=== PATIENT | male | born 1965 | race Caucasian/White ===

== ENCOUNTER → 2016-12-19 | Outpatient (CLI) | payer OTHER ==
[~2016-12-19] MED LIST: AMOX500T PO; ASPI325T45 PO; LEVO-366 PO; SULF800T23 PO; antibiotic PO
[2016-12-19 17:31] LABS: HEMATOCRIT 41.8 % (42-52); MEAN CELL VOLUME 88.6 fL (80-100); MEAN CORPUSCULAR HEMOGLOBIN 29.7 pg (25-34); MEAN CORPUSCULAR HGB CONC 33.5 g/dl (32-36); MEAN PLATELET VOLUME 9.8 fL (7.4-10.4); PLATELET COUNT 365 K/uL (130-400); RED BLOOD COUNT 4.72 M/uL (4.7-6.1); WHITE BLOOD COUNT 15.66 K/uL (4.8-10.8)
[2016-12-19 18:04] LABS: BLOOD UREA NITROGEN 14 mg/dl (7-18); BUN/CREATININE RATIO 10.8 (10-20); CALCIUM 8.4 mg/dl (8.5-10.1); CARBON DIOXIDE 26 mmol/L (21-32); CHLORIDE 110 mmol/L (98-107); GLUCOSE 131 mg/dl (70-99); POTASSIUM 4.3 mmol/L (3.5-5.1); SODIUM 142 mmol/L (136-145)
== END | disposition home or self-care (01) ==
LOC: C.LABPVFM 15:31
PROVIDERS: ATTEND Internal Medicine Interventional Cardiology
DX: Z01.818 Encounter for other preprocedural examination (principal)

== ENCOUNTER 2016-12-21 07:30 | Day surgery (SDC) | payer OTHER ==
[2016-12-20 17:55] LABS: INR 0.9 (0.9-1.1); PARTIAL THROMBOPLASTIN RATIO 1.1; PROTHROMBIN TIME (PATIENT) 9.6 SECONDS (9.0-12.0)
[~2016-12-21] VITALS: Ht 180.3 cm; Wt 136.3 kg
[~2016-12-21 07:30] MED LIST changes: -LEVO-366 PO; +SODIUM CHLORIDE 0.9% 1000ML 1,000 ML IV SCH; -SULF800T23 PO; -antibiotic PO
[2016-12-21 08:25] VITALS: BP 174/98; PULSE 76; TEMP 36.7; O2SAT 97; Ht 180.3 cm; Wt 136.3 kg
[2016-12-21] MEDS ORDERED: antibiotic PO (08:39)
[2016-12-21] MEDS ORDERED: SODIUM BICARB 8.4% INJ 50 MEQ/50 ML SYR IV ONE (09:21)
[2016-12-21] MEDS ORDERED: LIDOCAINE HCL 1% 20 ML VIAL ONE (09:21)
[2016-12-21] MEDS ORDERED: LIDOCAINE/EPINEPHRINE 1% INJ 50 ML VIAL ONE (09:21)
[2016-12-21] MEDS ORDERED: FENTANYL CITRATE INJ 50 MCG/1 ML 2 ML VIAL ONE (09:21)
--- NOTE | 2016-12-21 09:21 | Procedure Note ---
Pre-Mod Sedation Assessment General Date of Moderate Sedation: Dec 21, 2016. Vital Signs: Vital Signs Past 12 Hours Date Time Temp Pulse Resp B/P (MAP) Pulse Ox O2 Delivery O2 Flow Rate FiO2 12/21/16 08:25 36.7 76 18 174/98 (123) 97 Room Air Review Cardiovascular: regular rate, rhythm, no edema Abdomen: normal bowel sounds, soft Lungs: lungs clear, normal breath sounds Airway Class: III Pre-Sedation Airway Assessment Oral Cavity: Chipped Teeth, Dentures Able to Visualize Vocal Cords: No Short Thick Neck: Yes Hx of Sleep Apnea: Yes Smoking Status: Current Every Day Smoker Mallampati Classification: Class III ASA Classification: Class II Procedure Planning Contraindications-for Mod Sed: None Yes Notes The planned sedation has been discussed with the patient and consent obtained. I have identified the patient, determined the appropriateness of sedation and have assessed the patient immediately prior to the procedure. All medicine(s) and interventions are by my order.
--- NOTE | 2016-12-21 09:21 | History & Physical Bridge Note ---
H&P Re-Evaluation Bridge Note: I have examined the patient, reviewed the History & Physical and in the interval since the performance of the History & Physical I have noted the following changes of clinical significance: No changes noted
[2016-12-21] MEDS ORDERED: MIDAZOLAM HCL 1 MG/ML 2ML VIAL ONE (09:22)
[2016-12-21 09:34] VITALS: BP 174/98; PULSE 76; TEMP 36.7; O2SAT 97
[2016-12-21] MEDS ORDERED: FENTANYL CITRATE INJ 50 MCG/1 ML 2 ML VIAL IV ONE ×2 (10:14→10:27)
[2016-12-21] MEDS ORDERED: MIDAZOLAM HCL 1 MG/ML 2ML VIAL IV ONE ×2 (10:14→10:27)
[2016-12-21] MEDS ORDERED: LIDOCAINE HCL 1% 20 ML VIAL INJ ONE (10:18)
--- NOTE | 2016-12-21 10:48 | Discharge Instructions ---
Discharge Instructions Procedure Procedure Date: Dec 21, 2016. Reason for Visit: Venous Insufficiency. Discharge Discharge Date: Dec 21, 2016. Discharge Diagnosis: Venous Insufficiency Last Recorded Wt (Kilograms): 136.3 Anesthesia Post Anesthesia Instructions: If you have had General Anesthesia or IV Sedation: * Do not drive today. * Resume driving when surgeon permits. * Do not make important decisions or sign legal documents today. * Call surgeon for: 1. Temperature elevations greater than 101 degrees F. 2. Uncontrollable pain. 3. Excessive bleeding. 4. Persistent nausea and vomiting. 5. Medication intolerance (nausea, vomiting or rash). * For nausea and vomiting use only clear liquids such as: tea, soda, bouillon until nausea subsides, then gradually increase diet as tolerated. * If you have any concerns or questions, call your surgeon's office. If physician is unavailable and it is an emergency, call 911 or go to the nearest emergency room. Instructions Activity Recommendations: limitations as noted below (On paperwork from office) Recommended Home Diet: resume previous diet Allergies: Coded Allergies: BEE STING (Verified Allergy, Severe, ANAPHYLAXIS, 12/21/16) Acetaminophen (Verified Allergy, Unknown, TACHYCARDIA, 12/21/16) Codeine (Verified Allergy, Unknown, TACHYCARDIA, 12/21/16) Uncoded Allergies: POLYESTER (Adverse Reaction, Mild, BRADFORD SKIN, 05/28/15) Follow Up Follow-up with: Dr. Swartz' office for ultrasound [facility] Recommendations: Call your doctor if: * Temperature above 101 degrees * Pain not relieved by pain medicine ordered * There is increased drainage or redness from any incision * You have any unanswered questions or concerns. Your Doctors Instructions noted above were prepared by provider Leopoldo Swartz. Patient Signature Section: Patient Instructions Signature Page Jose Gray Patient (or Guardian) Signature/Date: I have read and understand the instructions given to me by my caregivers. Caregiver/RN/Doctor Signature/Date: The above-named patient and/or guardian has received patient instructions on this date. + Original Patient Signature Page (only) stays with chart. Please make copy for patient.
--- NOTE | 2016-12-21 10:49 | Procedure Note ---
Post-Mod Sedation Assessment General Date of Moderate Sedation Dec 21, 2016. Vital Signs: Vital Signs Past 12 Hours Date Time Temp Pulse Resp B/P (MAP) Pulse Ox O2 Delivery O2 Flow Rate FiO2 12/21/16 08:25 36.7 76 18 174/98 (123) 97 Room Air Review - Discharge Criteria Vital Signs Stable: Yes Alert/Oriented/Conversant: Yes Returned to Baseline Mental St: Yes Nausea Absent/Minimal: Yes Pain/Discomfort/Absent/Minimal: Yes Normal/Baseline Respirations: Yes Active Bleeding?: No Pt Received D/C Instructions: N/A Prescriptions Given: None Specific Proced. D/C Criteria Distal Pulses Present (Cardiac: Yes Groin site assessed-Card Cath: N/A Voided Prior To Discharge: N/A Discharged Patients Adult Escort/Transportation: Yes
[2016-12-21] MEDS ORDERED: ORM MISCELLANEOUS MED XX ONE (10:50)
--- NOTE | 2016-12-21 10:50 | [facility] Operative Report ---
Operative Report Operative Date Dec 21, 2016. Pre-Operative Diagnosis Chronic Venous Insufficiency Post-Operative Diagnosis Chronic Venous Insufficiency Procedure(s) Performed Right GSV RF ablation Surgeon Maxime Design Printing Machine Set Up Operator Surgeon(s) Maeve Estimated Blood Loss 3 Findings Dilated Right GSV Fluids None Specimens None Drains None Anesthesia Moderate Complication(s) None Disposition Recovery Room / PACU Indications Chronic Venous Insufficiency. Slow-healing wounds. Description of Procedure US guided access Right GSV below the knee . Catheter inserted, 2.75 cm from SFJ. tumescent injected. US confirmed not in deep system. 3:40, 11 cycles of RFA right GSV. No complications. Patient tolerated well. US confirmed no DVT post procedure. I attest to the content of the Intraoperative Record and any orders documented therein. Any exceptions are noted below.
[2016-12-21 11:14] VITALS: BP 161/100; PULSE 81; TEMP 37.2; O2SAT 96
[2016-12-21 11:45] VITALS: BP 151/83; PULSE 74; TEMP 37.2; O2SAT 94
[2016-12-21 12:23] VITALS: BP 162/100; PULSE 76; TEMP 37; O2SAT 95
[2017-01-05] MEDS ORDERED: SULF800T23 PO (14:20)
[2017-01-08] MEDS ORDERED: LEVO-366 PO (07:36)
== END 2016-12-21 12:30 | disposition home or self-care (01) ==
LOC: C.ACU 07:30
PROVIDERS: ATTEND Internal Medicine Interventional Cardiology
DX: I87.2 Venous insufficiency (chronic) (peripheral) (principal); Z79.82 Long term (current) use of aspirin